=== PATIENT | female | born 1960 | race Caucasian/White ===

== ENCOUNTER 2018-11-09 11:45 | Emergency (ER) | payer SELFPAY ==
[~2018-11-09] VITALS: Ht 170.2 cm; Wt 68.0 kg
[~2018-11-09 11:45] MED LIST: CARBAMAZEPINE200 MG PO; CLINDAMYCIN HC150 MG PO; ZYPREXA10 MG PO
--- OUTSIDE RECORDS SUMMARY | 2018-11-09 11:48 | XMS REPORT | Clinical Summary ---
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 Active piroxicam (FELDENE) 10 mg Take 1 30 capsule 3 capsuleIndications: Back capsule by 4 pain, Knee pain, Sciatica mouth daily. Active naproxen (NAPROSYN) 500 Take 1 tablet 20 tablet 0 mg tabletIndications: by mouth 2 4 Chronic knee pain times daily (with meals). Active ibuprofen (MOTRIN) 400 mg Take 1 tablet 30 tablet 0 tabletIndications: by mouth 8 Displaced fracture of every 6 hours distal phalanx of right as needed for great toe, initial Pain. encounter for closed fracture Active carBAMazepine (TEGRETOL Take 1 tablet 60 tablet 0 XR) 100 mg extended by mouth 2 8 release times daily. tabletIndications: Bipolar 1 disorder Active predniSONE (DELTASONE) 20 40 mg po 9 tablet 0 mg tabletIndications: daily for 3 8 Acute left-sided low back days then 20 pain with left-sided mg po daily sciatica for 3 days. Active traMADol (ULTRAM) 50 mg Take 1 tablet 15 tablet 0 tabletIndications: by mouth 8 Bilateral hip pain, daily as Anxiety about health needed for Pain. Active naproxen (NAPROSYN) 500 Take 1 tablet 60 tablet 0 mg tabletIndications: by mouth 2 8 Bilateral hip pain times daily as needed for Pain. 05/16/2019 Active Cyclobenzaprine Take 1 tablet 30 tablet 0 (FLEXERIL) 5 mg by mouth 3 9 tabletIndications: Acute times daily pain of right knee as needed for Muscle Spasms. 05/16/2018 Discontinued cyclobenzaprine Take 1 tablet 30 tablet 0 (FLEXERIL) 10 mg by mouth 3 7 tabletIndications: Neck times daily pain on right side as needed for Muscle Spasms. 02/11/2018 hydrOXYzine (ATARAX) 25 Take 1 tablet 30 tablet 0 mg tabletIndications: by mouth 8 Anxiety about health daily as needed for up to 10 days for Anxiety or Insomnia. 05/26/2018 Discontinued nitrofurantoin Take 1 20 capsule 0 (MACRODANTIN) 100 mg capsule by 9 capsuleIndications: mouth 4 times Bizarre behavior daily for 5 days. 05/31/2018 nitrofurantoin Take 1 20 capsule 0 (MACRODANTIN) 100 mg capsule by 9 capsuleIndications: mouth 4 times Cystitis daily for 5 days. 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 09/24/2017 Pain of toe of right foot 06/12/2017 Itch of eye, right 08/04/2013 Knee pain 08/04/2013 Low back pain 08/04/2013 Bipolar 1 disorder 02/02/2012 Overview: In remission Alcohol dependence in remission 02/02/2012 Overview: In sustained remission Bizarre behavior Drug use Unspecified psychosis not due to a substance or known physiological condition Bipolar disorder, unspecified Neck pain Right foot pain Cellulitis of right lower extremity Pain of right eye Carotid AV fistula Confusion Memory loss Hearing loss Psychosis Chest pain in adult Right hip pain Anxiety disorder Other bipolar disorder Encounters Care Team Description Date Type Specialty Donell Ga MD Other bipolar disorder (Primary Dx); Right hip pain; Chest pain in adult; Bizarre behavior; Anxiety disorder, unspecified type; Psychosis, unspecified psychosis type; Cystitis 05/25/2018 Emergency Emergency Medicine - 05/26/2018 05/25/2018 Travel Rolando Bone MD Ordonez, Edgardo, MD Bizarre behavior (Primary Dx); Bipolar 1 disorder; Bipolar affective disorder, remission status unspecified; Psychosis, unspecified psychosis type 05/24/2018 Emergency Emergency Medicine - 05/25/2018 Varun Nguyen MD Acute pain of right knee (Primary Dx); Acute pain of both knees; Confusion; Memory loss; Hearing loss, unspecified hearing loss type, unspecified laterality; Right knee pain, unspecified chronicity 05/16/2018 Emergency Emergency Medicine 05/15/2018 Travel Adan Dye NP Bilateral hip pain (Primary Dx); Anxiety about health 02/01/2018 Office Visit Family Practice Binta Hoskins, Fellow(MD) Nilda Hoskins NP 02/01/2018 Emergency Emergency Medicine Marcela Welsh MD Gopinath, Shankar P, MD NO SHOW ENCOUNTER (Primary Dx) 01/18/2018 Office Visit Neurosurgery Srinivasan Macdonald MD Bipolar 1 disorder (Primary Dx); Bipolar affective disorder in remission; Acute left-sided low back pain with left-sided sciatica; Alcohol dependence in remission 01/13/2018 Emergency Emergency Medicine Marcela Welsh MD Acute right ankle pain (Primary Dx); Encounter for medical screening examination; Pain of right eye; 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; Carotid AV fistula 01/08/2018 Emergency Emergency Medicine - 01/09/2018 after 11/08/2017 Family History Medical History Relation Name Comments Arthritis Mother Heart Mother Psychiatry Mother Pulmonary Mother Relation Name Status Comments Father Alive Mother Sister Social History Date Tobacco Use Types Packs/Day Years Used Current Every Day Smoker Cigarettes 0.5 Smokeless Tobacco: Never Used Tobacco Cessation: Ready to Quit: Yes; Counseling Given: Yes Drinks/Week oz/Week Comments Alcohol Use No Sex Assigned at Date Recorded Not on file Industry Job Start Date Occupation Not on file Not on file Not on file Travel End Travel History Travel Start No recent travel history available. Last Filed Vital Signs Reading Time Taken Comments Vital Sign 112/68 05/26/2018 7:26 AM BELLOWS TESTER Blood Pressure 83 05/26/2018 7:26 AM BELLOWS TESTER Pulse 36.8 C (98.2 F) 05/26/2018 7:26 AM BELLOWS TESTER Temperature 14 05/26/2018 7:26 AM BELLOWS TESTER Respiratory Rate 95% 05/26/2018 7:26 AM BELLOWS TESTER Oxygen Saturation - - Inhaled Oxygen Concentration 63.5 kg (140 lb) 02/01/2018 3:30 PM CDT Weight 170.2 cm (5' 7") 02/01/2018 3:30 PM CDT Height 21.93 02/01/2018 3:30 PM CDT Body Mass Index Plan of Treatment Health Maintenance Due Date Last Done Comments Cervical Cancer Scrn (3 10/14/1980 Yrs) Breast Cancer Scrn 1999 (Yearly) Colonoscopy 1yr 10/14/2009 IMM Influenza Seasonal 02/11/2019Feb to July (>/=19 yrs) Procedures Comments Procedure Name Priority Date/Time Associated Diagnosis CONSULT CLINICAL CASE STAT 05/26/2018 MANAGEMENT (RN/SW) 4:[address] HEAD W/O CONTRAST STAT 05/25/2018 Bizarre behavior 8:05 PM BELLOWS TESTER TROPONIN I POC Routine 05/25/2018 6:33 PM BELLOWS TESTER AMMONIA STAT 05/25/2018 6:15 PM BELLOWS TESTER SYPHILIS SCREEN FOR STAT 05/25/2018 INFECTION 6:15 PM BELLOWS TESTER HIV-1/HIV-2 ROUTINE STAT 05/25/2018 SCREENING 6:15 PM BELLOWS TESTER ALCOHOL, MEDICAL USE ONLY STAT 05/25/2018 6:15 PM BELLOWS TESTER VITAMIN B12 STAT 05/25/2018 6:15 PM BELLOWS TESTER THYROID STIMULATING STAT 05/25/2018 HORMONE (TSH) 6:15 PM BELLOWS TESTER CARBAMAZEPINE STAT 05/25/2018 6:15 PM BELLOWS TESTER XRAY CHEST 2 VIEWS STAT 05/25/2018 Chest pain in adult 5:50 PM BELLOWS TESTER XRAY HIP UNILATERAL 2/3 STAT 05/25/2018 Right hip pain VIEWS 9:18 AM BELLOWS TESTER 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 SOFTWARE DEVELOPER Routine 05/24/2018 11:29 PM BELLOWS TESTER URINE DRUG SCREEN STAT 05/24/2018 11:15 PM BELLOWS TESTER URINALYSIS STAT 05/24/2018 11:15 PM BELLOWS TESTER BMP POC Routine 05/24/2018 10:37 PM BELLOWS TESTER CBC/DIFF STAT 05/24/2018 10:33 PM BELLOWS TESTER 12 LEAD EKG Routine 05/24/2018 10:27 PM BELLOWS TESTER BMP POC Routine 05/16/2018 5:23 AM BELLOWS TESTER 12 LEAD EKG Routine 05/16/2018 4:23 AM BELLOWS TESTER CBC/DIFF STAT 05/16/2018 3:19 AM BELLOWS TESTER CTA NECK W CONTRAST STAT 01/09/2018 Pain of right eye 3:06 AM CDT 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 CTA HEAD W CONTRAST STAT 01/09/2018 Pain of right eye 3:06 AM CDT 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 CT HEAD W/O CONTRAST STAT 01/09/2018 Pain of right eye 3:06 AM CDT 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 Specimen Impressions Performed At IMPRESSION: SMS 1.No acute intracranial abnormalities. 2.Nonspecific partial opacification of the bilateral maxillary sinuses. 3.No significant changes compared to previous head CT dated 01/09/2018. Chronic findings: 1.Mild microvascular ischemic changes. 2.Right cavernous ICA endovascular coils for the management of the carotid cavernous fistula at an outside facility. If the report is "FINALIZED" it indicates that the attending/staff radiologist has reviewed the images and agrees with the resident's interpretation. Dictated By: Dean Simmons MD, 05/25/2018 10:17 PM I have reviewed the study and agree with the findings in this report. Signed By: Maia Ellis MD, 05/25/2018 10:26 PM Narrative Performed At Exam : Head CT without contrast SMS History: fall, ams Comparison studies: Head CT on 01/09/2018.. Technique: Axial scans were obtained from skull base to the vertex. Coronal and sagittal reconstructions obtained from the axial data. IV Contrast: None Complications: None Radiation Dose: Total DLP: 701 mGy*cm. Estimated Effective Dose: DLP x 0.0021 mSv FINDINGS: See impression. Procedure Note Interface, Rad/Mammog In - 05/25/2018 10:32 PM BELLOWS TESTER Exam : Head CT without contrast History: fall, ams Comparison studies: Head CT on 01/09/2018.. Technique: Axial scans were obtained from skull base to the vertex. Coronal and sagittal reconstructions obtained from the axial data. IV Contrast: None Complications: None Radiation Dose: Total DLP: 701 mGy*cm. Estimated Effective Dose: DLP x 0.0021 mSv FINDINGS: See impression. IMPRESSION IMPRESSION: 1. No acute intracranial abnormalities. 2. Nonspecific partial opacification of the bilateral maxillary sinuses. 3. No significant changes compared to previous head CT dated 01/09/2018. Chronic findings: 1. Mild microvascular ischemic changes. 2. Right cavernous ICA endovascular coils for the management of the carotid cavernous fistula at an outside facility. If the report is "FINALIZED" it indicates that the attending/staff radiologist has reviewed the images and agrees with the resident's interpretation. Dictated By: Dean Simmons MD, 05/25/2018 10:17 PM I have reviewed the study and agree with the findings in this report. Signed By: Maia Ellis MD, 05/25/2018 10:26 PM Performing Organization Address [facility] Phone Number SMS * TROPONIN I POC (05/25/2018 6:33 PM BELLOWS TESTER) Troponin POC 0.00 0.00 - 0.08 ng/mL BT MAIN-STATION 1 Specimen Performing Organization Address [facility] Phone Number MISYS BT MAIN-STATION 1 * SYPHILIS SCREEN FOR INFECTION (05/25/2018 6:15 PM BELLOWS TESTER) Treponemal Ab Negative BT DIAGNOSTIC IMMUNOLOGY Final Report Negative BT DIAGNOSTIC IMMUNOLOGY Specimen Performing Organization Address [facility] Phone Number MISYS BT DIAGNOSTIC IMMUNOLOGY * HIV-1/HIV-2 ROUTINE SCREENING (05/25/2018 6:15 PM BELLOWS TESTER) HIV-1/HIV-2 Negative NEG BT MAIN-STATION 3 Specimen Performing Organization Address [facility] Phone Number MISYS BT MAIN-STATION 3 * TSH (05/25/2018 6:15 PM BELLOWS TESTER) TSH 0.49 (L) 0.57 - 3.74 uIU/mL BT MAIN-STATION 1 Specimen Blood Performing Organization Address [facility] Phone Number MISYS BT MAIN-STATION 1 * VITAMIN B12 (05/25/2018 6:15 PM BELLOWS TESTER) Vitamin B12 697 211 - 911 pg/mL BT MAIN-STATION 1 Specimen Blood Performing Organization Address [facility] Phone Number MISYS BT MAIN-STATION 1 * CARBAMAZEPINE (05/25/2018 6:15 PM BELLOWS TESTER) Only the most recent of 2 results within the time period is included. Carbamazepine 10.6Comment: Test performed on 4 - 12 ug/mL BT MAIN-STATION [id number] using EMIT Immunoassay 1 Specimen Blood Performing Organization Address [facility] Phone Number MISYS BT MAIN-STATION 1 * AMMONIA (05/25/2018 6:15 PM BELLOWS TESTER) Ammonia 66 (H) 16 - 53 umol/L BT MAIN-STATION 1 Specimen Blood Performing Organization Address [facility] Phone Number MISYS BT MAIN-STATION 1 * ALCOHOL, MEDICAL USE ONLY (05/25/2018 6:15 PM BELLOWS TESTER) Alcohol <0.010 <0.1 g/dL BT MAIN-STATION 1 Specimen Blood Performing Organization Address [facility] Phone Number MISYS BT MAIN-STATION 1 * XRAY CHEST 2 VIEWS (05/25/2018 5:50 PM BELLOWS TESTER) Specimen Impressions Performed At IMPRESSION: SMS No acute thoracic abnormality. Dictated By: Bartolo Mcfarland MD, 05/25/2018 5:59 PM I have reviewed the study and agree with the findings in this report. Signed By: Chinedu Swenson MD, 05/25/2018 7:02 PM Narrative Performed At EXAMINATION:XRAY CHEST 2 VIEWS, Frontal and lateral SMS INDICATION: cough, chest pain COMPARISON:None FINDINGS: TUBES/LINES:None LUNGS:No consolidations or edema. PLEURA:No effusions or pneumothorax. HEART/MEDIASTINUM:Normal cardiomediastinal silhouette. MUSCULOSKELETAL:No acute findings. Left upper quadrant coils. Cervical metallic hardware in place. Healed left clavicle and left rib fractures. UPPER ABDOMEN: Normal Procedure Note Interface, Rad/Mammog In - 05/25/2018 7:07 PM BELLOWS TESTER EXAMINATION: XRAY CHEST 2 VIEWS, Frontal and lateral INDICATION: cough, chest pain COMPARISON: None FINDINGS: TUBES/LINES: None LUNGS: No consolidations or edema. PLEURA: No effusions or pneumothorax. HEART/MEDIASTINUM: Normal cardiomediastinal silhouette. MUSCULOSKELETAL: No acute findings. Left upper quadrant coils. Cervical metallic hardware in place. Healed left clavicle and left rib fractures. UPPER ABDOMEN: Normal IMPRESSION IMPRESSION: No acute thoracic abnormality. Dictated By: Bartolo Mcfarland MD, 05/25/2018 5:59 PM I have reviewed the study and agree with the findings in this report. Signed By: Chinedu Swenson MD, 05/25/2018 7:02 PM Performing Organization Address [facility] Phone Number SMS * XRAY HIP UNILATERAL 2/3 VIEWS (05/25/2018 9:18 AM BELLOWS TESTER) Specimen Impressions Performed At IMPRESSION: SMS 1.No acute radiographic abnormality of the right hip. 2.Bilateral chronic appearing healed fractures of both superior and inferior pubic rami and the left iliac bone. If there is clinical concern for acute on chronic fracture, CT would be more sensitive for evaluation. Dictated By: Bartolo Mcfarland MD, 05/25/2018 9:26 AM I have reviewed the study and agree with the findings in this report. Signed By: Chinedu Swenson MD, 05/25/2018 9:37 AM Narrative Performed At EXAMINATION:XRAY HIP UNILATERAL 2/3 VIEWS SMS INDICATION: fall last night COMPARISON:None FINDINGS: BONES: There is marked deformity throughout the pelvis including healed fracture deformities of both superior pubic and inferior pubic rami. Cortical step-off of the left iliopectineal line with sclerotic appearance of the left superior acetabulum which is also likely chronic. Left sacroiliac screws are in place. JOINTS: Moderate to severe degenerative changes of the left hip. SOFT TISSUES: Normal Procedure Note Interface, Rad/Mammog In - 05/25/2018 9:42 AM BELLOWS TESTER EXAMINATION: XRAY HIP UNILATERAL 2/3 VIEWS INDICATION: fall last night COMPARISON: None FINDINGS: BONES: There is marked deformity throughout the pelvis including healed fracture deformities of both superior pubic and inferior pubic rami. Cortical step-off of the left iliopectineal line with sclerotic appearance of the left superior acetabulum which is also likely chronic. Left sacroiliac screws are in place. JOINTS: Moderate to severe degenerative changes of the left hip. SOFT TISSUES: Normal IMPRESSION IMPRESSION: 1. No acute radiographic abnormality of the right hip. 2. Bilateral chronic appearing healed fractures of both superior and inferior pubic rami and the left iliac bone. If there is clinical concern for acute on chronic fracture, CT would be more sensitive for evaluation. Dictated By: Bartolo Mcfarland MD, 05/25/2018 9:26 AM I have reviewed the study and agree with the findings in this report. Signed By: Chinedu Swenson MD, 05/25/2018 9:37 AM Performing Organization Address City/State/Zipcode Phone Number SMS * UA CHEMISTRIES (05/24/2018 11:15 PM BELLOWS TESTER) Only the most recent of 2 results within the time period is included. Color Straw BT MAIN-STATION 4 Clarity Clear BT MAIN-STATION 4 Specific 1.004 1.001 - 1.035 BT MAIN-STATION [place] 4 pH 7.0 5 - 8 BT MAIN-STATION 4 Protein Negative NEG BT MAIN-STATION 4 Glucose Negative NEG BT MAIN-STATION 4 Ketones Negative NEG BT MAIN-STATION 4 Bilirubin Negative NEG BT MAIN-STATION 4 Nitrate Negative NEG BT MAIN-STATION 4 Urobilinogen,Se <1.0 0.2 - 1.0 EU/dL BT MAIN-STATION mi-Qn 4 Leukocyte 3+ (A) NEG BT MAIN-STATION 4 Occult Blood Negative NEG BT MAIN-STATION 4 RBC 4 0 - 4 /HPF BT MAIN-STATION 4 WBC 13 (H) 0 - 5 /HPF BT MAIN-STATION 4 Epithelial Cell 1 /HPF BT MAIN-STATION 4 Specimen Urine Performing Organization Address [facility] Phone Number MISYS BT MAIN-STATION 4 * URINE DRUG SCREEN (05/24/2018 11:15 PM BELLOWS TESTER) Only the most recent of 2 results within the time period is included. Amphetamine Negative NEG BT MAIN-STATION Comment: 1 Calibrated Standard: D-Methamphetamine Positive if urine level >sv=3731 ng/mL Test performed on [id number] using EMIT Immunoassay Barbiturate Negative NEG BT MAIN-STATION Comment: 1 Calibrated Standard: Secobarbital Positive if urine level is >jk=519 ng/mL Test performed on [id number] using EMIT Immunoassay Benzodiazepine Negative NEG BT MAIN-STATION Comment: 1 Calibrated Standard: Lormethazepam Positive if urine level is >mi=916 ng/mL Test performed on [id number] using EMIT Immunoassay Cannabinoid Positive (A) NEG BT MAIN-STATION Comment: 1 Calibrated Standard: 11 nor-delta(9)-THC carboxylic a Positive if urine level >or=50 Test performed on [id number] using EMIT Immunoassay Cocaine Negative NEG BT MAIN-STATION Comment: 1 Calibrated Standard: Benzoylecgonine Positive if urine level >ap=359 Test performed on [id number] using EMIT Immunoassay Opiate, Ur Negative NEG BT MAIN-STATION Comment: 1 Calibrated Standard: Morphine Positive if urine level >ik=248 Test performed on [id number] using EMIT Immunoassay PCP Negative NEG BT MAIN-STATION Comment: 1 Calibrated Standard: Phencyclidine Positive if urine level >or=25 Test performed on [id number] using EMIT Immunoassay Urine Toxicology Screen results are to be used only for Medical purposes. Specimen Urine Performing Organization Address City/[facility] Phone Number MISYS MAIN-STATION 1 * BMP POC (05/24/2018 10:37 PM BELLOWS TESTER) Only the most recent of 2 results within the time period is included. CO2 POC 26 21 - 32 mmol/L BT MAIN-STATION 1 Chloride POC 102 98 - 107 mmol/L BT MAIN-STATION 1 Potassium POC 3.5 3.50 - 5.10 mmol/L BT MAIN-STATION 1 Sodium POC 139 136 - 145 mmol/L BT MAIN-STATION 1 Glucose POC 106 74 - 106 mg/dL BT MAIN-STATION 1 Urea Nitrogen 5 (L) 7 - 18 mg/dL BT MAIN-STATION POC 1 Creatinine POC 0.4 (L) 0.6 - 1.3 mg/dL BT MAIN-STATION 1 Calcium Ionized 1.13 (L) 1.15 - 1.29 mmol/L BT MAIN-STATION POC 1 Hemoglobin POC 14.6 12.0 - 16.0 g/dL BT MAIN-STATION 1 Hematocrit POC 43.0 37.0 - 47.0 % BT MAIN-STATION 1 GFR, Estimated >60 mL/min/1.73 m2 BT MAIN-STATION 1 GFR, Estim, >60 mL/min/1.73 m2 BT MAIN-STATION Afr-Am 1 Specimen Performing Organization Address City/State/Zipcode Phone Number MISYS BT MAIN-STATION 1 * CBC/DIFF (05/24/2018 10:33 PM BELLOWS TESTER) Only the most recent of 3 results within the time period is included. WBC 7.9 4.5 - 11.0 K/uL BT MAIN-STATION 2 RBC 4.24 4.20 - 5.40 M/uL BT MAIN-STATION 2 Hemoglobin 12.6 12.0 - 16.0 g/dL BT MAIN-STATION 2 Hematocrit 38.3 37.0 - 47.0 % BT MAIN-STATION 2 MCV 90 82 - 92 fL BT MAIN-STATION 2 MCH 29.7 27.0 - 32.0 pg BT MAIN-STATION 2 MCHC 32.9 32.0 - 36.0 g/dL BT MAIN-STATION 2 RDW 55.7 (H) 36.4 - 46.3 fL BT MAIN-STATION 2 Platelets 358 150 - 400 K/uL BT MAIN-STATION 2 Mean Platelet 9.1 (L) 9.4 - 12.4 fL BT MAIN-STATION Volume 2 Percent NRBC 0.0 BT MAIN-STATION 2 Absolute NRBC 0.00 BT MAIN-STATION 2 Neutrophils 42.5 34.0 - 70.0 % BT MAIN-STATION 2 Lymphs 43.5 20.0 - 50.0 % BT MAIN-STATION 2 Monocytes 11.0 5.0 - 12.0 % BT MAIN-STATION 2 Eos 1.8 0.7 - 5.0 % BT MAIN-STATION 2 Basos 0.9 0.1 - 1.2 % BT MAIN-STATION 2 Immature 0.3 0.0 - 0.5 BT MAIN-STATION Granulocytes 2 Neutrophils 3.37 1.56 - 6.13 K/uL BT MAIN-STATION (Absolute) 2 Lymphs 3.44 1.18 - 3.74 K/uL BT MAIN-STATION (Absolute) 2 Monocytes(Absol 0.87 (H) 0.24 - 0.36 K/uL BT MAIN-STATION brigette) 2 Eos (Absolute) 0.14 0.04 - 0.36 K/uL BT MAIN-STATION 2 Baso (Absolute) 0.07 0.01 - 0.08 K/uL BT MAIN-STATION 2 Immature Grans 0.02 0.00 - 0.03 K/uL BT MAIN-STATION (Abs) 2 Specimen Blood Performing Organization Address [facility] Phone Number MISYS BT MAIN-STATION 2 * 12 LEAD EKG (05/24/2018 10:27 PM BELLOWS TESTER) [facility] Signature [address] 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 Measurements Intervals [place] Rate: 69 P:42 KS: 145 QRS: 7 QRSD: 89 T:48 QT: 401 QTc:431 Interpretive Statements SINUS RHYTHM Reviewed by Electronically Signed On 05-16-2018 5:34:34 BELLOWS TESTER by Dottie Pedroza M.D. Specimen Performing Organization Address City/State/Zipcode Phone Number SMS * CTA NECK W CONTRAST (01/09/2018 3:06 AM CDT) Specimen Impressions Performed At IMPRESSION: [facility] Head CT with and without contrast: 1.No acute abnormalities. 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 CTA's 1.Interval intervention with right cavernous ICA endovascular coils resulting in significant decrease in caliber of the previously described engorged cavernous sinuses and ophthalmic veins. 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 3.Findings are compared with prior head CTA on 09/24/2017. Dictated By: Dean Simmons MD, 01/09/2018 6:31 AM I have reviewed the study and agree with the findings in this report. Signed By: Frank Fuentes MD, 01/09/2018 8:30 AM Narrative Performed At Exams: Cervical and Intracranial CT angiograms. [facility] History: CN palsy Comparison studies: Head and neck CTA on 09/24/2017.. Technique: Axial CT scans obtained from the skull base to the vertex without and with contrast. Axial images obtained through the cervical and intracranial regions during injection of IV contrast. For optimization of anatomic evaluation, multiplanar reconstruction, maximum intensity projections, and advanced 3-D off-line postprocessing were obtained on a dedicated stand-alone workstation under the direct supervision of the interpreting physician. IV [id number] cc of Omnipaque. Complication: None Radiation dose: Total DLP: 1855 mGy*cm Estimated Effective Dose: DLP x 0.031 mSv FINDINGS: See impression. Cervical CTA: If present, stenosis of the carotid bulbs is measured based on NASCET criteria, i.e. area of maximal stenosis compared to the cervical ICA distal to the bulb. Aortic arch: Patent, no abnormalities. Common Carotid arteries: Patent, no abnormalities. Carotid Bulbs:Patent, no abnormalities. Internal Carotid arteries: Non opacification of the cervical, petrous and cavernous right ICA. Normla left ICA. Vertebral arteries: Patent, no abnormalities. Intracranial CTA: Carotid arteries: Interval placement of right cavernous ICA endovascular coils resulting in significant decrease in caliber of the previously described engorged cavernous sinuses and ophthalmic veins. Distal reconstitution of the right intracranial ICA via COW. Normal left ICA Patent, no abnormalities in the A1 and M1 segments. Vertebrobasilar Circulation: Vertebral arteries: Patent, no abnormalities. Basilar artery: Patent, no abnormalities. Posterior cerebral arteries:Patent, no abnormalities. Normal Variants: Acom: Patent Pcoms:Patent Vertebral arteries: Co-dominant. Cervical spine: Severe degenerative changes of the cervical spine. C1-2 posterior fusion hardware construct. No hardware loosening or complications. C5-6 anterior fusion hardware construct. No loosening or complications. . Posterior longitudinal ligament: Not ossified. Procedure Note Interface, Rad/Mammog In - 01/09/2018 8:35 AM CDT Exams: Cervical and Intracranial CT angiograms. History: CN palsy Comparison studies: Head and neck CTA on 09/24/2017.. Technique: Axial CT scans obtained from the skull base to the vertex without and with contrast. Axial images obtained through the cervical and intracranial regions during injection of IV contrast. For optimization of anatomic evaluation, multiplanar reconstruction, maximum intensity projections, and advanced 3-D off-line postprocessing were obtained on a dedicated stand-alone workstation under the direct supervision of the interpreting physician. IV Contrast 100 cc of Omnipaque. Complication: None Radiation dose: Total DLP: 1855 mGy*cm Estimated Effective Dose: DLP x 0.031 mSv FINDINGS: See impression. Cervical CTA: If present, stenosis of the carotid bulbs is measured based on NASCET criteria, i.e. area of maximal stenosis compared to the cervical ICA distal to the bulb. Aortic arch: Patent, no abnormalities. Common Carotid arteries: Patent, no abnormalities. Carotid Bulbs:Patent, no abnormalities. Internal Carotid arteries: Non opacification of the cervical, petrous and cavernous right ICA. Normla left ICA. Vertebral arteries: Patent, no abnormalities. Intracranial CTA: Carotid arteries: Interval placement of right cavernous ICA endovascular coils resulting in significant decrease in caliber of the previously described engorged cavernous sinuses and ophthalmic veins. Distal reconstitution of the right intracranial ICA via COW. Normal left ICA Patent, no abnormalities in the A1 and M1 segments. Vertebrobasilar Circulation: Vertebral arteries: Patent, no abnormalities. Basilar artery: Patent, no abnormalities. Posterior cerebral arteries: Patent, no abnormalities. Normal Variants: Acom: Patent Pcoms:Patent Vertebral arteries: Co-dominant. Cervical spine: Severe degenerative changes of the cervical spine. C1-2 posterior fusion hardware construct. No hardware loosening or complications. C5-6 anterior fusion hardware construct. No loosening or complications. . Posterior longitudinal ligament: Not ossified. IMPRESSION IMPRESSION: Head CT with and without contrast: 1. No acute abnormalities. 2. 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 Mild chronic microvascular ischemic changes. CTA's 1. Interval intervention with right cavernous ICA endovascular coils resulting in significant decrease in caliber of the previously described engorged cavernous sinuses and ophthalmic veins. 2. 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 3. Findings are compared with prior head CTA on 09/24/2017. Dictated By: Dean Simmons MD, 01/09/2018 6:31 AM I have reviewed the study and agree with the findings in this report. Signed By: Frank Fuentes MD, 01/09/2018 8:30 AM Performing Organization Address City/State/Zipcode Phone Number SMS * CTA HEAD W CONTRAST (01/09/2018 3:06 AM CDT) Specimen Impressions Performed At IMPRESSION: [facility] Head CT with and without contrast: 1.No acute abnormalities. 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 CTA's 1.Interval intervention with right cavernous ICA endovascular coils resulting in significant decrease in caliber of the previously described engorged cavernous sinuses and ophthalmic veins. 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 3.Findings are compared with prior head CTA on 09/24/2017. Dictated By: Dean Simmons MD, 01/09/2018 6:31 AM I have reviewed the study and agree with the findings in this report. Signed By: Frank Fuentes MD, 01/09/2018 8:30 AM Narrative Performed At Exams: Cervical and Intracranial CT angiograms. [facility] History: CN palsy Comparison studies: Head and neck CTA on 09/24/2017.. Technique: Axial CT scans obtained from the skull base to the vertex without and with contrast. Axial images obtained through the cervical and intracranial regions during injection of IV contrast. For optimization of anatomic evaluation, multiplanar reconstruction, maximum intensity projections, and advanced 3-D off-line postprocessing were obtained on a dedicated stand-alone workstation under the direct supervision of the interpreting physician. IV [id number] cc of Omnipaque. Complication: None Radiation dose: Total DLP: 1855 mGy*cm Estimated Effective Dose: DLP x 0.031 mSv FINDINGS: See impression. Cervical CTA: If present, stenosis of the carotid bulbs is measured based on NASCET criteria, i.e. area of maximal stenosis compared to the cervical ICA distal to the bulb. Aortic arch: Patent, no abnormalities. Common Carotid arteries: Patent, no abnormalities. Carotid Bulbs:Patent, no abnormalities. Internal Carotid arteries: Non opacification of the cervical, petrous and cavernous right ICA. Normla left ICA. Vertebral arteries: Patent, no abnormalities. Intracranial CTA: Carotid arteries: Interval placement of right cavernous ICA endovascular coils resulting in significant decrease in caliber of the previously described engorged cavernous sinuses and ophthalmic veins. Distal reconstitution of the right intracranial ICA via COW. Normal left ICA Patent, no abnormalities in the A1 and M1 segments. Vertebrobasilar Circulation: Vertebral arteries: Patent, no abnormalities. Basilar artery: Patent, no abnormalities. Posterior cerebral arteries:Patent, no abnormalities. Normal Variants: Acom: Patent Pcoms:Patent Vertebral arteries: Co-dominant. Cervical spine: Severe degenerative changes of the cervical spine. C1-2 posterior fusion hardware construct. No hardware loosening or complications. C5-6 anterior fusion hardware construct. No loosening or complications. . Posterior longitudinal ligament: Not ossified. Procedure Note Interface, Rad/Mammog In - 01/09/2018 8:35 AM CDT Exams: Cervical and Intracranial CT angiograms. History: CN palsy Comparison studies: Head and neck CTA on 09/24/2017.. Technique: Axial CT scans obtained from the skull base to the vertex without and with contrast. Axial images obtained through the cervical and intracranial regions during injection of IV contrast. For optimization of anatomic evaluation, multiplanar reconstruction, maximum intensity projections, and advanced 3-D off-line postprocessing were obtained on a dedicated stand-alone workstation under the direct supervision of the interpreting physician. IV Contrast 100 cc of Omnipaque. Complication: None Radiation dose: Total DLP: 1855 mGy*cm Estimated Effective Dose: DLP x 0.031 mSv FINDINGS: See impression. Cervical CTA: If present, stenosis of the carotid bulbs is measured based on NASCET criteria, i.e. area of maximal stenosis compared to the cervical ICA distal to the bulb. Aortic arch: Patent, no abnormalities. Common Carotid arteries: Patent, no abnormalities. Carotid Bulbs:Patent, no abnormalities. Internal Carotid arteries: Non opacification of the cervical, petrous and cavernous right ICA. Normla left ICA. Vertebral arteries: Patent, no abnormalities. Intracranial CTA: Carotid arteries: Interval placement of right cavernous ICA endovascular coils resulting in significant decrease in caliber of the previously described engorged cavernous sinuses and ophthalmic veins. Distal reconstitution of the right intracranial ICA via COW. Normal left ICA Patent, no abnormalities in the A1 and M1 segments. Vertebrobasilar Circulation: Vertebral arteries: Patent, no abnormalities. Basilar artery: Patent, no abnormalities. Posterior cerebral arteries: Patent, no abnormalities. Normal Variants: Acom: Patent Pcoms:Patent Vertebral arteries: Co-dominant. Cervical spine: Severe degenerative changes of the cervical spine. C1-2 posterior fusion hardware construct. No hardware loosening or complications. C5-6 anterior fusion hardware construct. No loosening or complications. . Posterior longitudinal ligament: Not ossified. IMPRESSION IMPRESSION: Head CT with and without contrast: 1. No acute abnormalities. 2. 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 Mild chronic microvascular ischemic changes. CTA's 1. Interval intervention with right cavernous ICA endovascular coils resulting in significant decrease in caliber of the previously described engorged cavernous sinuses and ophthalmic veins. 2. 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 3. Findings are compared with prior head CTA on 09/24/2017. Dictated By: Dean Simmons MD, 01/09/2018 6:31 AM I have reviewed the study and agree with the findings in this report. Signed By: Frank Fuentes MD, 01/09/2018 8:30 AM Performing Organization Address City/State/Zipcode Phone Number SMS * DUPLEX DOPPLER LOWER EXTREMITY VENOUS, BILATERAL (01/08/2018 10:02 PM CDT) Specimen Impressions Performed At IMPRESSION: [facility] No evidence of deep venous thrombosis above the bilateralcalves. If the report is "FINALIZED" it indicates that the attending/staff radiologist has reviewed the images and agrees with the resident's interpretation. Dictated By: Dangelo Weinstein MD, 01/08/2018 11:25 PM I have reviewed the study and agree with the findings in this report. Signed By: Brenda Ibarra MD, 01/09/2018 3:32 AM Narrative Performed At EXAM: Bilateral Lower Extremity Venous Duplex Ultrasound [facility] INDICATION: LE swelling COMPARISON: None TECHNIQUE: Resendiz scale, color Doppler and spectral waveform analysis of the bilateral lower extremities deep venous system was performed. FINDINGS: Right Lower Extremity: Common Femoral: Fully compressible with normal spontaneous waveforms. Proximal Greater Saphenous: Fully compressible. Femoral: Fully compressible with normal spontaneous waveforms.Normal response to augmentation. Proximal Deep Femoral: Normal spontaneous waveforms. Popliteal: Fully compressible with normal spontaneous waveforms. Left Lower Extremity: Common Femoral: Fully compressible with normal spontaneous waveforms. Proximal Greater Saphenous: Fully compressible. Femoral: Fully compressible with normal spontaneous waveforms.Normal response to augmentation. Proximal Deep Femoral: Normal spontaneous waveforms. Popliteal: Fully compressible with normal spontaneous waveforms. Procedure Note Interface, Rad/Mammog In - 01/09/2018 3:37 AM CDT EXAM: Bilateral Lower Extremity Venous Duplex Ultrasound INDICATION: LE swelling COMPARISON: None TECHNIQUE: Resendiz scale, color Doppler and spectral waveform analysis of the bilateral lower extremities deep venous system was performed. FINDINGS: Right Lower Extremity: Common Femoral: Fully compressible with normal spontaneous waveforms. Proximal Greater Saphenous: Fully compressible. Femoral: Fully compressible with normal spontaneous waveforms. Normal response to augmentation. Proximal Deep Femoral: Normal spontaneous waveforms. Popliteal: Fully compressible with normal spontaneous waveforms. Left Lower Extremity: Common Femoral: Fully compressible with normal spontaneous waveforms. Proximal Greater Saphenous: Fully compressible. Femoral: Fully compressible with normal spontaneous waveforms. Normal response to augmentation. Proximal Deep Femoral: Normal spontaneous waveforms. Popliteal: Fully compressible with normal spontaneous waveforms. IMPRESSION IMPRESSION: No evidence of deep venous thrombosis above the bilateral calves. If the report is "FINALIZED" it indicates that the attending/staff radiologist has reviewed the images and agrees with the resident's interpretation. Dictated By: Dangelo Weinstein MD, 01/08/2018 11:25 PM I have reviewed the study and agree with the findings in this report. Signed By: Brenda Ibarra MD, 01/09/2018 3:32 AM Performing Organization Address City/State/Zipcode Phone Number SMS * COMPREHENSIVE METABOLIC PANEL(DBIL NOT INCLUDED) (01/08/2018 8:00 PM CDT) Albumin 4.4 3.7 - 5.3 g/dL [facility] Calcium 9.2 8.6 - 10.3 mg/dL [facility] CO2 28 21 - 31 mmol/L [facility] Chloride 102 98 - 107 mmol/L [facility] 1 Creatinine 0.60 0.6 - 1.2 mg/dL [facility] 1 Glucose 85 70 - 110 mg/dL [facility] 1 Alkaline 117 (H) 34 - 104 U/L [facility] Phosphatase, S 1 Potassium 3.7 3.5 - 5.1 mmol/L [facility] 1 Sodium 139 136 - 145 mmol/L [facility] 1 ALT 8 7 - 52 U/L [facility] 1 AST (SGOT) 19 13 - 39 U/L [facility] 1 BUN 14 7 - 25 mg/dL [facility] 1 Bilirubin, 0.6 0.2 - 1.2 mg/dL [facility] Total 1 Protein, Total, 7.2 6.0 - 8.3 g/dL [facility] Serum 1 GFR, Estimated >60 mL/min/1.73 m2 [facility] 1 eGFR If Africn >60 mL/min/1.73 m2 [facility] Am 1 Anion Gap 9 [facility] 1 Specimen Blood Performing Organization Address [facility] Phone Number MISYS [facility] * B-TYPE NATRIURETIC PEPTIDE (BNP) (01/08/2018 8:00 PM CDT) B Natriuretic 28 <101 pg/mL [facility] Pept 1 Specimen Blood Performing Organization Address [facility] Phone Number MISYS [facility] * XRAY FOOT 3 VIEWS MIN (01/07/2018 8:16 PM CDT) Specimen Impressions Performed At IMPRESSION: [facility] 1.No new fractures of the right foot. 2.Interval increased sclerosis of the previously described fracture through the distal aspect of the first digit proximal phalanx. Dictated By: Oumou Martell MD, 01/07/2018 10:40 PM I have reviewed the study and agree with the findings in this report. Signed By: Brenda Ibarra MD, 01/07/2018 10:43 PM Narrative Performed At EXAMINATION:XRAY FOOT 3 VIEWS MIN [facility] SIDE: Right INDICATION: right foot pain COMPARISON:Right foot radiograph 06/12/2017 FINDINGS: BONES: No acute fracture. Diffuse bony demineralization. Interval increased sclerosis of the previously described fracture through the distal aspect of the first digit proximal phalanx. JOINTS: No malalignment. SOFT TISSUES: Mild soft tissue swelling of the dorsum of the foot. Procedure Note Interface, Rad/Mammog In - 01/07/2018 10:48 PM CDT EXAMINATION: XRAY FOOT 3 VIEWS MIN SIDE: Right INDICATION: right foot pain COMPARISON: Right foot radiograph 06/12/2017 FINDINGS: BONES: No acute fracture. Diffuse bony demineralization. Interval increased sclerosis of the previously described fracture through the distal aspect of the first digit proximal phalanx. JOINTS: No malalignment. SOFT TISSUES: Mild soft tissue swelling of the dorsum of the foot. IMPRESSION IMPRESSION: 1. No new fractures of the right foot. 2. Interval increased sclerosis of the previously described fracture through the distal aspect of the first digit proximal phalanx. Dictated By: Oumou Martell MD, 01/07/2018 10:40 PM I have reviewed the study and agree with the findings in this report. Signed By: Brenda Ibarra MD, 01/07/2018 10:43 PM Performing Organization Address City/State/Zipcode Phone Number SMS after 11/08/2017 Insurance Type Payer Benefit Subscriber ID Effective Phone Address Plan / Dates Group PENDING LIEN PENDING xxxxxxxxx 2018- [phone] [id number] [facility] (SELF-PAY) [place] [address] [facility] SELF-PAY SELF-PAY xxxxxxxxx 2018-P [phone] [id number] [facility] [place] [address] (Work)
--- OUTSIDE RECORDS SUMMARY | 2018-11-09 11:49 | XMS REPORT ---
Author Author [facility] Address Unknown Phone Unavailable Care Team Providers Care Spar Finisher Name Role Phone UNKNOWN, REFFERING PP Unavailable CARLOS CRAFT Unavailable Unavailable Lukasz RAMEY Unavailable Unavailable Payers Payer Name Policy Type Policy Number Effective Date Expiration Date Problems This patient has no known problems. Allergies, Adverse Reactions, Alerts Allergy Name Allergy Type Status Severity Reaction(s) Onset Date Inactive Date Treating Clinician Comments No Known Allergies DA Active U 2018-05-15 00:00:00 No Known Allergies DA Active U 2017-12-25 00:00:00 Medications This patient has no known medications. Encounters Start Date/Time End Date/Time Encounter Type Admission Type Attending Clinicians Care Facility Care Department Encounter ID 2018-06-06 00:00:00 2018-06-06 00:00:00 Outpatient [facility] [id number] 2018-05-25 20:00:10 2018-05-25 20:00:10 Emergency [facility] [id number] 2018-05-25 17:27:48 2018-05-25 17:27:48 Emergency [facility] [id number] 2018-05-25 14:15:37 2018-05-25 14:15:37 Emergency [facility] [id number] 2018-05-25 08:52:46 2018-05-25 08:52:46 Emergency [facility] [id number] 2018-05-24 22:30:10 2018-05-24 22:30:10 Emergency [facility] [id number] 2018-05-16 02:44:30 2018-05-16 02:44:30 Emergency [facility] [id number] 2018-02-04 00:00:00 2018-02-04 00:00:00 Outpatient [facility] [id number] 2018-02-01 15:28:37 2018-02-01 15:28:37 Outpatient [facility] [id number] 2018-02-01 10:05:47 2018-02-01 10:05:47 Emergency [facility] [id number] 2018-01-18 00:00:00 2018-01-18 00:00:00 Outpatient [facility] [id number] 2018-01-13 08:29:34 2018-01-13 08:29:34 Emergency [facility] [id number] 2018-01-09 02:06:50 2018-01-09 02:06:50 Emergency [facility] [id number] 2018-01-08 22:37:10 2018-01-08 22:37:10 Emergency [facility] [id number] 2018-01-08 21:31:42 2018-01-08 21:31:42 Emergency [facility] [id number] 2018-01-08 14:50:20 2018-01-08 14:50:20 Emergency [facility] [id number] 2018-01-07 20:07:38 2018-01-07 20:07:38 Outpatient [facility] [id number] 2017-09-24 21:38:16 2017-09-24 21:38:16 Emergency [facility] [id number] 2017-09-24 20:50:57 2017-09-24 20:50:57 Emergency [facility] [id number] 2017-09-24 19:43:28 2017-09-24 19:43:28 Emergency [facility] [id number] 2017-09-24 00:00:00 2017-09-24 00:00:00 Emergency [facility] [id number] 2017-07-18 10:30:34 2017-07-18 10:30:34 Emergency [facility] [id number] 2017-07-18 10:24:13 2017-07-18 10:24:13 Emergency [facility] [id number] 2017-07-12 02:34:00 2017-07-12 02:34:00 Emergency [facility] [id number] 2017-06-12 18:59:35 2017-06-12 18:59:35 Emergency [facility] [id number] 2017-06-12 12:45:58 2017-06-12 12:45:58 Emergency [facility] [id number] 2017-03-31 20:50:44 2017-03-31 20:50:44 [facility] [id number] 2017-03-31 19:11:55 2017-03-31 19:11:55 [facility] [id number] 2017-03-22 11:38:24 2017-03-22 11:38:24 [facility] [id number] 2017-03-20 12:56:46 2017-03-20 12:56:46 [facility] [id number] 2017-03-20 07:46:24 2017-03-20 07:46:24 [facility] [id number] Results Test Description Test Time Test Comments Text Results Atomic Results Result Comments Comprehensive Metabolic Panel 2017-07-12 04:24:00 Sodium (test code=NA) 139 mmol/L 135-145 Potassium (test code=K) 3.5 mmol/L 3.5-5.1 Chloride (test code=CL) 102 mmol/L 98-105 Carbon Dioxide (test code=CO2) 25 mmol/L 22-29 Glucose (test code=GLU) 117 mg/dL 70-115 Blood Urea Nitrogen (test code=BUN) 27 mg/dL 6-20 Creatinine (test code=CREAT) 0.7 mg/dL 0.5-0.9 Calcium (test code=CA) 9.4 mg/dL 8.3-10.5 Prot Total (test code=TP) 6.9 g/dL 6.4-8.3 Albumin (test code=ALB) 4.2 g/dL 3.5-5.2 A/G Ratio (test code=AGRATIO) 1.6 Ratio Globulin (test code=GLOB) 2.7 2.9-3.1 Bili Total (test code=TBIL) 0.4 mg/dL 0.1-0.9 Alk Phos (test code=APHOS) 107 U/L 35-104 AST (test code=AST) 52 U/L 1-32 ALT (test code=ALT) 21 U/L 1-33 BUN/Creatinine Ratio (test code=BCRATIO) 38.6 Anion Gap (test code=AGAP) 12 mmol/L 7-16 Estimated GFR (test code=GFR) >60 mL/min/1.73m2 eGFR (estimated Glomerular Filtration Rate) is an estimated value,calculated from the patient's serum creatinine using the MDRD equation.It is NOT the patient's actual GFR. The eGFR provides a more clinicallyuseful measure of kidney disease than serum creatinine alone.This calculation takes sex and race into account, if the informationis provided. If the race is not provided, and the patient isAfrican-Wallisian, multiply by 1.212. If sex is not provided, and thepatient is female, multiply by 0.742. Results for patients <18 years ofage have not been validated by the MDRD study and should be interpretedwith caution.eGFR Result Interpretation:eGFR > or=60 is in the Normal RangeeGFR < 60 may mean kidney diseaseeGFR < 15 may mean kidney failureRanges recommended by the National Kidney Foundat ion,http://nkdep.nih.gov CBC with [id number] 04:01:00* Test Item Value Reference Range Comments WBC (test code=WBC) 7.7 K/cumm 4.4-10.5 RBC (test code=RBC) 4.51 M/cumm 3.75-5.20 Hemoglobin (test code=HGB) 13.0 gm/dL 12.2-14.8 Hematocrit (test code=HCT) 41.3 % 36.5-44.4 MCV (test code=MCV) 91.6 fL 80-100 MCH (test code=MCH) 28.8 pg 27.0-32.5 MCHC (test code=MCHC) 31.4 g/dL 32.0-37.5 RDW (test code=RDW) 14.1 % 11.5-14.5 Platelet Count (test code=PLTCT) 379 K/cumm 140-440 MPV (test code=MPV) 9.2 fL Diff Method (test code=DIFFM) Auto Neutrophil (test code=NEUT) 51.6 % 36-70 Lymphocyte (test code=LYMPH) 39.9 % 12-44 Monocyte (test code=MONO) 7.0 % 0-11 Eosinophil (test code=EOS) 0.8 % 0-7 Basophil (test code=BASO) 0.7 % 0-2 Neutro Abs (test code=ANEUT) 3.9 K/cumm 1.6-7.4 Lymph Abs (test code=ALYMPH) 3.1 K/cumm 0.5-4.6 [place] Abs (test code=AMONO) 0.5 K/cumm 0.0-1.2 Eos Abs (test code=AEOS) 0.06 K/cumm 0.00-0.74 Baso Abs (test code=ABASO) 0.1 K/cumm 0.00-0.21 CT CERVICAL SPINE LTD W/O [id number] 03:50:56Exam: CT of the cervical spine without contrast.History: PainTechnique: Contiguous axial CT images were obtained from the vertexthrough T1 without contrast. Coronal and sagittal reformatted images ofthe cervical spine were also performed.Comparison: None Available Location: [id number]: No evidence of acute cervical spine fracture. No prevertebral softtissue swelling is demonstrated. Exam findings very limited secondary to artifact from patient's C1-T1roxpixmautwd posterior fusion and patient's C5-C6 segments of theanterior fusion.Multilevel degenerative changes are noted. There is limited evaluationof the neuroforamina secondary to artifact from orthopedic repair.However there appears to at least moderate narrowing of the left C5-C6and C6-C7 neuroforamen. A large focal disc herniation seen at C3- P3pnqnron in moderate to severe canal stenosis at this level. A morebroad-based disc herniation at C4-C5 is seen without significant canalstenosis.Visualized lung apices demonstrate no evidence of pneumothorax.Impression: No evidence of acute cervical spine fracture or traumatic subluxationExam findings very limited secondary to artifact from instrumentedfusion as above and poor patient po sitioningThere appears to at least moderate narrowing of the left C5-C6 and C6-C 7neuroforamenA large focal disc herniation seen at C3-C4 results in moderate tos evere canal stenosis at this level. Culture, Blood [id number] 08:02:00 Specimen: BloodCollected: 11/26/2016 02:00 Status: Final Last Updated: 11/12 08:02 (1) ER Bed 3 Culture Result (Final) (Final) No Growth After 5 Days Culture, Blood [id number] 08:02:00Specimen: BloodCollected: 11/26/2016 02:00 Status: Final Last Updated: 12/01/2016 08:02 (1) ER Bed 3 Culture Result (Final) (Final) No Growth After 5 Days Culture, Blood [id number] 09:53:00Specimen: BloodCollected: 11/23/2016 19:56 Status: Final Last Updated: 11/29/2016 09:53 (1) ER Bed 14 Culture Result (Final) (Final) No Growth After 5 Days Culture, Blood Routine 2016-11-29 09:53:00Specimen: BloodCollected: 11/23/2016 19:40 Status: Final Last Updated: 11/29/2016 09:53 (1) ER Bed 14 Culture Result (Final) (Final) No Growth After 5 Days [id number] 03:53:00* Test Item Value Reference Range Comments Amphetamine (test code=AMPH) POSITIVE Negative For diagnostic purposes only, positive results should always be assessedin conjunctionwith the patient's medical history,clinical examination and otherfindings.To fulfill legal requirements, a more specific alternate chemical methodmust be used inorder to obtain a Confirmed analytical result. GC/MS is the preferred confirmatory method. Barbiturates (test code=GILA) Negative Negative Benzodiazepine (test code=KAVON) Negative Negative Cocaine (test code=COCA) POSITIVE Negative Methadone (test code=MTHD) Negative Negative Opiates (test code=OPIA) Negative Negative PCP (test code=PCP) Negative Negative Propoxyphene (test code=PROPOX) Negative Negative THC (test code=THC) POSITIVE Negative Alcohol, Urine (test code=ETOHU) <0.01 g/dL 0.00-0.01 Urinalysis [id number] 03:34:00* Test Item Value Reference Range Comments Color (test code=COLOR) [place] Yellow,Straw,Pl yellow Clarity (test code=CLAR) Clear Clear Specific [place] (test code=SPGR) 1.026 1.001-1.035 pH (test code=PH) 6.5 5.0-9.0 Ketone (test code=KET) 50 mg/dL Negative Glucose (test code=GLUCUR) Negative mg/dL Negative Protein (test code=PROT) 75 mg/dL Negative Bilirubin (test code=BILI) See IctoTest mg/dL Negative Occult Blood (test code=UDOB) Mod to Large Negative Urobilinogen (test code=UROB) 4.0 mg/dL 0.2-1.0 Nitrite (test code=NIT) Negative Negative Leuk Esterase (test code=LEUK) Small Negative Ictotest (test code=ICTOTEST) Confirmed Negative Negative,Confirmed Negative Micros Exam (test code=MEXAM) Indicated Epithelial Cells (test code=EPI) 3-5 /LPF 0-30 WBC, Urine (test code=UWBC) 2-5 /HPF 0-5 RBC, Urine (test code=URBC) 6-9 /HPF 0-5 Bacteria (test code=BACT) Few /HPF Comprehensive Metabolic [id number] 03:03:00* Test Item Value Reference Range Comments Sodium (test code=NA) 135 mmol/L 135-145 Potassium (test code=K) 3.4 mmol/L 3.5-5.1 Chloride (test code=CL) 97 mmol/L 98-105 Carbon Dioxide (test code=CO2) 24 mmol/L 22-29 Glucose (test code=GLU) 88 mg/dL 70-115 Blood Urea Nitrogen (test code=BUN) 19 mg/dL 6-20 Creatinine (test code=CREAT) 0.6 mg/dL 0.5-0.9 Calcium (test code=CA) 9.1 mg/dL 8.3-10.5 Prot Total (test code=TP) 7.6 g/dL 6.4-8.3 Albumin (test code=ALB) 4.2 g/dL 3.5-5.2 A/G Ratio (test code=AGRATIO) 1.2 Ratio Globulin (test code=GLOB) 3.4 2.9-3.1 Bili Total (test code=TBIL) 0.7 mg/dL 0.1-0.9 Alk Phos (test code=APHOS) 90 U/L 35-104 AST (test code=AST) 53 U/L 1-32 ALT (test code=ALT) 27 U/L 1-33 BUN/Creatinine Ratio (test code=BCRATIO) 31.7 Anion Gap (test code=AGAP) 14 mmol/L 7-16 Estimated GFR (test code=GFR) >60 mL/min/1.73m2 eGFR (estimated Glomerular Filtration Rate) is an estimated value,calculated from the patient's serum creatinine using the MDRD equation.It is NOT the patient's actual GFR. The eGFR provides a more clinicallyuseful measure of kidney disease than serum creatinine alone.This calculation takes sex and race into account, if the informationis provided. If the race is not provided, and the patient isAfrican-Wallisian, multiply by 1.212. If sex is not provided, and thepatient is female, multiply by 0.742. Results for patients <18 years ofage have not been validated by the MDRD study and should be interpretedwith caution.eGFR Result Interpretation:eGFR > or=60 is in the Normal RangeeGFR < 60 may mean kidney diseaseeGFR < 15 may mean kidney failureRanges recommended by the National Kidney Foundat ion,http://nkdep.nih.gov CBC with [id number] 02:46:00* Test Item Value Reference Range Comments WBC (test code=WBC) 11.2 K/cumm 4.4-10.5 RBC (test code=RBC) 4.43 M/cumm 3.75-5.20 Hemoglobin (test code=HGB) 12.7 gm/dL 12.2-14.8 Hematocrit (test code=HCT) 38.5 % 36.5-44.4 MCV (test code=MCV) 86.9 fL 80-100 MCH (test code=MCH) 28.8 pg 27.0-32.5 MCHC (test code=MCHC) 33.1 g/dL 32.0-37.5 RDW (test code=RDW) 15.4 % 11.5-14.5 Platelet Count (test code=PLTCT) 309 K/cumm 140-440 MPV (test code=MPV) 8.5 fL Diff Method (test code=DIFFM) Auto Neutrophil (test code=NEUT) 67.1 % 36-70 Lymphocyte (test code=LYMPH) 24.1 % 12-44 Monocyte (test code=MONO) 7.6 % 0-11 Eosinophil (test code=EOS) 0.7 % 0-7 Basophil (test code=BASO) 0.5 % 0-2 Neutro Abs (test code=ANEUT) 7.5 K/cumm 1.6-7.4 Lymph Abs (test code=ALYMPH) 2.7 K/cumm 0.5-4.6 [place] Abs (test code=AMONO) 0.9 K/cumm 0.0-1.2 Eos Abs (test code=AEOS) 0.08 K/cumm 0.00-0.74 Baso Abs (test code=ABASO) 0.1 K/cumm 0.00-0.21 [id number] 21:24:00* Test Item Value Reference Range Comments Amphetamine (test code=AMPH) POSITIVE Negative For diagnostic purposes only, positive results should always be assessedin conjunctionwith the patient's medical history,clinical examination and otherfindings.To fulfill legal requirements, a more specific alternate chemical methodmust be used inorder to obtain a Confirmed analytical result. GC/MS is the preferred confirmatory method. Barbiturates (test code=GILA) Negative Negative Benzodiazepine (test code=KAVON) Negative Negative Cocaine (test code=COCA) Negative Negative Methadone (test code=MTHD) Negative Negative Opiates (test code=OPIA) Negative Negative PCP (test code=PCP) Negative Negative Propoxyphene (test code=PROPOX) Negative Negative THC (test code=THC) POSITIVE Negative Alcohol, Urine (test code=ETOHU) <0.01 g/dL 0.00-0.01 Comprehensive Metabolic [id number] 21:24:00* Test Item Value Reference Range Comments Sodium (test code=NA) 137 mmol/L 135-145 Potassium (test code=K) 3.3 mmol/L 3.5-5.1 Chloride (test code=CL) 98 mmol/L 98-105 Carbon Dioxide (test code=CO2) 23 mmol/L 22-29 Glucose (test code=GLU) 121 mg/dL 70-115 Blood Urea Nitrogen (test code=BUN) 16 mg/dL 6-20 Creatinine (test code=CREAT) 0.7 mg/dL 0.5-0.9 Calcium (test code=CA) 9.9 mg/dL 8.3-10.5 Prot Total (test code=TP) 8.0 g/dL 6.4-8.3 Albumin (test code=ALB) 4.5 g/dL 3.5-5.2 A/G Ratio (test code=AGRATIO) 1.3 Ratio Globulin (test code=GLOB) 3.5 2.9-3.1 Bili Total (test code=TBIL) 0.9 mg/dL 0.1-0.9 Alk Phos (test code=APHOS) 94 U/L 35-104 AST (test code=AST) 42 U/L 1-32 ALT (test code=ALT) 26 U/L 1-33 BUN/Creatinine Ratio (test code=BCRATIO) 22.9 Anion Gap (test code=AGAP) 16 mmol/L 7-16 Estimated GFR (test code=GFR) >60 mL/min/1.73m2 eGFR (estimated Glomerular Filtration Rate) is an estimated value,calculated from the patient's serum creatinine using the MDRD equation.It is NOT the patient's actual GFR. The eGFR provides a more clinicallyuseful measure of kidney disease than serum creatinine alone.This calculation takes sex and race into account, if the informationis provided. If the race is not provided, and the patient isAfrican-Wallisian, multiply by 1.212. If sex is not provided, and thepatient is female, multiply by 0.742. Results for patients <18 years ofage have not been validated by the MDRD study and should be interpretedwith caution.eGFR Result Interpretation:eGFR > or=60 is in the Normal RangeeGFR < 60 may mean kidney diseaseeGFR < 15 may mean kidney failureRanges recommended by the National Kidney Foundat ion,http://nkdep.nih.gov Lactic Acid [id number] 21:18:00* Test Item Value Reference Range Comments Lactic Acid, Bld (test code=LAC) 0.9 mmol/L 0.5-1.9 CBC with [id number] 21:06:00* Test Item Value Reference Range Comments WBC (test code=WBC) 12.7 K/cumm 4.4-10.5 RBC (test code=RBC) 4.83 M/cumm 3.75-5.20 Hemoglobin (test code=HGB) 13.5 gm/dL 12.2-14.8 Hematocrit (test code=HCT) 41.1 % 36.5-44.4 MCV (test code=MCV) 85.2 fL 80-100 MCH (test code=MCH) 27.9 pg 27.0-32.5 MCHC (test code=MCHC) 32.8 g/dL 32.0-37.5 RDW (test code=RDW) 15.3 % 11.5-14.5 Platelet Count (test code=PLTCT) 282 K/cumm 140-440 MPV (test code=MPV) 7.7 fL Diff Method (test code=DIFFM) Auto Neutrophil (test code=NEUT) 80.2 % 36-70 Lymphocyte (test code=LYMPH) 12.2 % 12-44 Monocyte (test code=MONO) 6.8 % 0-11 Eosinophil (test code=EOS) 0.3 % 0-7 Basophil (test code=BASO) 0.5 % 0-2 Neutro Abs (test code=ANEUT) 10.2 K/cumm 1.6-7.4 Lymph Abs (test code=ALYMPH) 1.5 K/cumm 0.5-4.6 [place] Abs (test code=AMONO) 0.9 K/cumm 0.0-1.2 Eos Abs (test code=AEOS) 0.04 K/cumm 0.00-0.74 Baso Abs (test code=ABASO) 0.1 K/cumm 0.00-0.21
--- NOTE | 2018-11-09 12:00 | NUR ---
[facility] placed on the monitor and siderails up x2. bed low/locked and call mishra in hand
[2018-11-09] MEDS ORDERED: PROMETHAZINE 12.5MG/ NACL 0.9% 12.5 MG/50 ML BAG IV ONE (12:45)
[2018-11-09] MEDS ORDERED: SODIUM CHLORIDE 0.9% 1000ML 1,000 ML IV STA (12:45)
[2018-11-09 12:53] LABS: BASOPHILS # (AUTO) 0.1 (0.0-0.1); BASOPHILS % 0.3 % (0.0-1.0); HEMATOCRIT 44.5 % (34.2-44.1); HEMOGLOBIN 15.8 g/dL (12.0-16.0); LYMPHOCYTES # (AUTO) 2.5 (1.0-3.2); LYMPHOCYTES % 13.8 % (18.0-39.1); MEAN CORPUSCULAR HEMOGLOBIN 30.3 pg (28-32); MEAN CORPUSCULAR HGB CONC 35.5 g/dL (31-35); MEAN CORPUSCULAR VOLUME 85.4 fL (81-99); MONOCYTES # (AUTO) 1.2 (0.2-0.8); MONOCYTES % 6.9 % (4.4-11.3); NEUTROPHILS # (AUTO) 14.2 (2.1-6.9); NEUTROPHILS % 78.6 % (38.7-80.0); PLATELET COUNT 363 x10e3/uL (140-360); RED BLOOD COUNT 5.21 x10e6/uL (3.6-5.1); RED CELL DISTRIBUTION WIDTH 13.8 % (11.7-14.4)
[2018-11-09 12:57] LABS: INR 0.91; PROTHROMBIN TIME 12.7 seconds (11.9-14.5)
[2018-11-09 12:58] LABS: PARTIAL THROMBOPLASTIN TIME 25.2 seconds (23.8-35.5)
[2018-11-09] MEDS ORDERED: DIPHENHYDRAMINE HCL INJ 50 MG/ML VIAL IV NR (13:00)
[2018-11-09] MEDS ORDERED: PANTOPRAZOLE 40 MG 10ML VIAL IV NR (13:00)
[2018-11-09 13:09] LABS: ALANINE AMINOTRANSFERASE 21 IU/L (0-55); ALBUMIN 4.7 g/dL (3.5-5.0); ALBUMIN/GLOBULIN RATIO 1.1 (0.8-2.0); ALKALINE PHOSPHATASE 124 IU/L (40-150); ANION GAP 19.3 mmol/L (8-16); BLOOD UREA NITROGEN 18 mg/dL (7-26); BUN/CREATININE RATIO 23 (6-25); CALCIUM 11.1 mg/dL (8.4-10.2); CARBON DIOXIDE 27 mmol/L (22-29); CHLORIDE 93 mmol/L (98-107); CREATINE KINASE 209 IU/L (29-168); CREATININE, SERUM 0.78 mg/dL (0.57-1.11); EST GLOMERULAR FILTRATION RATE > 60 ML/MIN (60-); GLUCOSE 139 mg/dL (74-118); LIPASE 26 U/L (8-78); MAGNESIUM 2.5 MG/DL (1.3-2.1); POTASSIUM 3.3 mmol/L (3.5-5.1); SODIUM 136 mmol/L (136-145)
--- NOTE | 2018-11-09 13:23 | NUR ---
meds given per 's orders and pt has tolerated well.
--- NOTE | 2018-11-09 13:50 | NUR ---
urine collected and sent off to the lab.
[2018-11-09 14:24] LABS: BILIRUBIN,URINE NEGATIVE (NEGATIVE); CLARITY,URINE CLOUDY (CLEAR); COLOR,URINE YELLOW (YELLOW); KETONES,URINE 1+ (NEGATIVE); LEUKOCYTE ESTERASE ,URINE TRACE (NEGATIVE); NITRITE,URINE POSITIVE (NEGATIVE); PROTEIN,URINE DIPSTICK TRACE (NEGATIVE); URINE UROBILINOGEN 0.2 mg/dL (0.2 - 1)
--- NOTE | 2018-11-09 14:49 | Diagnostic Imaging Report ---
EXAM: CT Abdomen and Pelvis with contrast INDICATION: Nausea, vomiting, abdominal pain. COMPARISON: None. TECHNIQUE: Abdomen and pelvis were scanned utilizing a multidetector helical scanner from the lung base to the pubic symphysis after administration of IV contrast. Coronal and sagittal reformations were obtained. Routine protocol was performed. Scan was performed when during portal venous phase. IV CONTRAST: 100 cc of Isovue 370 ORAL CONTRAST: Water COMPLICATIONS: None RADIATION DOSE: Total DLP: 218.2 mGy*cm Dose modulation, iterative reconstruction, and/or weight based adjustment of the mA/kV was utilized to reduce the radiation dose to as low as reasonably achievable. FINDINGS: LINES and TUBES: None. LOWER THORAX: Unremarkable HEPATOBILIARY: Diffuse mild hepatic steatosis. No evidence of focal lesion. No biliary ductal dilation. GALLBLADDER: No radio-opaque stones or sludge. No wall thickening. SPLEEN: Status post splenectomy. PANCREAS: No focal masses or ductal dilatation. ADRENALS: No adrenal nodules KIDNEYS/URETERS: Kidneys enhance symmetrically. No evidence of hydronephrosis, solid mass, or stone. GI TRACT: No evidence of bowel obstruction. The stomach is distended with fluid. There is mild wall thickening within the distal stomach/duodenum. Normal appendix. PELVIC ORGANS/BLADDER: Calcified pelvic phleboliths. LYMPH NODES: No lymphadenopathy. Calcified perigastric lymph node on series 2, image 21. VESSELS: Unremarkable. PERITONEUM / RETROPERITONEUM: No free air or fluid. BONES AND SOFT TISSUES: Posttraumatic changes involving the bilateral inferior pubic rami. No acute osseous abnormality. There is a screw which transfixes the left sacroiliac joint. There is age-indeterminate moderate vertebral body height loss at T12 and mild height loss at L3. There is sclerosis along the anterior aspect of the T10 vertebral body without significant height loss, which may reflect a healed fracture. CONCLUSION: Distended stomach with fluid. No evidence of bowel obstruction. Mild wall thickening within the distal stomach/duodenum, which may reflect inflammation. Diffuse mild hepatic steatosis. Age indeterminate compression deformities, moderate at T12 and mild at L3. Signed by: Dr. Chinedu Swenson MD on 11/09/2018 2:46 PM
[2018-11-09 15:21] LABS: AMORPHOUS SEDIMENT,URINE FEW (FEW); BACTERIA,URINE MANY /HPF; EPITHELIAL CELLS,URINE MODERATE /LPF; RBC,URINE 0-5 /HPF (0-5); WBC,URINE (MAN) 0-5 /HPF (0-5)
[2018-11-09 15:23] LABS: AMPHETAMINES SCREEN,URINE NEGATIVE (NEGATIVE); BENZODIAZEPINES SCREEN,URINE NEGATIVE (NEGATIVE); PHENCYCLIDINE SCREEN,URINE NEGATIVE (NEGATIVE)
[2018-11-09] MEDS ORDERED: SODIUM CHLORIDE 0.9% 50ML 50 ML ONE (16:51)
[2018-11-09] MEDS ORDERED: IOPAMIDOL 370 MG/ML 200 ML INFUS..BTL INJ ONE (16:52)
== END 2018-11-09 16:46 | disposition home or self-care (01) ==
LOC: ER 11:45
DX: R10.84 Generalized abdominal pain (principal); R11.2 Nausea with vomiting, unspecified; R19.7 Diarrhea, unspecified; N30.90 Cystitis, unspecified without hematuria; K29.50 Unspecified chronic gastritis without bleeding
CPT/HCPCS: 36415; 74177; 80053; 80307; 81001; 82550; 82553; 83690; 83735; 84484; 85025; 85610; 85730; 87086; 87186; 93005; 99284; C9113; J1200; J2550; J7030; Q9967